=== PATIENT | female | born 1950 | race Caucasian/White ===

== ENCOUNTER 2022-07-17 10:15 | Outpatient (CLI) | payer MEDICARE, OTHER | END 2022-07-17 10:16 | disposition home or self-care (01) | LOC: CSHMAMMO 10:15 | PROVIDERS: ATTEND Internal Medicine | DX: Z12.31 Encounter for screening mammogram for malignant neoplasm of breast (principal); Z80.3 Family history of malignant neoplasm of breast | CPT/HCPCS: 77063; 77067 ==

== ENCOUNTER 2023-03-29 08:35 | Outpatient (CLI) | payer MEDICARE, OTHER | END 2023-03-29 08:36 | disposition home or self-care (01) | LOC: CSHULT 08:35 | PROVIDERS: ATTEND Specialist | DX: Z86.39 Personal history of other endocrine, nutritional and metabolic disease (principal); Z92.3 Personal history of irradiation; E04.2 Nontoxic multinodular goiter | CPT/HCPCS: 76536 ==

== ENCOUNTER 2023-12-13 10:48 | Outpatient (CLI) | payer MEDICARE, OTHER | END 2023-12-13 10:49 | disposition home or self-care (01) | LOC: CSHMAMMO 10:48 | PROVIDERS: ATTEND Internal Medicine | DX: Z12.31 Encounter for screening mammogram for malignant neoplasm of breast (principal) | CPT/HCPCS: 77063; 77067 ==